=== PATIENT | female | born 1995 | race African-American/Black ===

== ENCOUNTER 2017-06-25 21:43 | Emergency (ER) | payer SELFPAY ==
[~2017-06-25] VITALS: Ht 167.6 cm; Wt 122.5 kg
[2017-06-25 22:50] VITALS: BP 177/93; PULSE 78; RESP 18; TEMP 97.7; O2SAT 100
--- NOTE | 2017-06-26 00:32 | PD ---
HPI Chief Complaint: Laceration/Skin Injury Time Seen by Provider: 00:23 Travel History International Travel<30 days: No Contact w/Intl Traveler<30days: No Traveled to known affect area: No History of Present Illness HPI 22-year-old female presents emergency department for evaluation of a laceration sustained to the left index finger. Patient cut the finger with a pizza cutter tonight at work. She states it was difficult to get it to stop bleeding. It has stopped bleeding at this time. Patient denies any significant pain at site. No alterations in sensation. No limitations in range of motion. Patient is up-to-date on her tetanus vaccination. She has no other symptoms to report. [facility] Past Medical History Medical History: Denies Significant Hx ?: Not LMP: 06/04/17 Social History Tobacco Use: No Allergies-Medications (Allergen,Severity, Reaction): Coded Allergies: No Known Drug Allergies (Verified Allergy, Unknown, 06/25/17) Review of Systems Except as stated in HPI: all other systems reviewed are Neg Physical Exam Narrative GENERAL: Well-nourished female patient, no acute distress. SKIN: Focused skin assessment warm/dry. Less than 1 cm superficial laceration to the lateral aspect of the left distal second digit. Bleeding is controlled. No erythema or edema. HEAD: Atraumatic. Normocephalic. EYES: Pupils equal and round. No scleral icterus. No injection or drainage. ENT: No nasal bleeding or discharge. Mucous membranes pink and moist. NECK: Trachea midline. No JVD. CARDIOVASCULAR: Regular rate and rhythm. No murmur appreciated. RESPIRATORY: No accessory muscle use. Clear to auscultation. Breath sounds equal bilaterally. MUSCULOSKELETAL: No obvious deformities. No clubbing. No cyanosis. No edema. Patient has full flexion-extension of the affected digit. Cap refill within normal limits. Distal pulses are palpable. NEUROLOGICAL: Awake and alert. No obvious cranial nerve deficits. Motor grossly within normal limits. Normal speech. PSYCHIATRIC: Appropriate mood and affect; insight and judgment normal. Data Data Last Documented VS Vital Signs Date Time Temp Pulse Resp B/P (MAP) Pulse Ox O2 Delivery O2 Flow Rate FiO2 06/25/17 22:50 97.7 78 18 177/93 (121) 100 Orders Orders Wound Care (06/26/17 00:30) Ed Discharge Order (06/26/17 00:30) MDM Medical Decision Making Medical Screen Exam Complete: Yes Emergency Medical Condition: Yes Medical Record Reviewed: Yes Differential Diagnosis Laceration superficial versus deep versus abrasion versus avulsion Narrative Course 22-year-old female presents emergency department for evaluation of laceration to her left index finger. This is a very superficial cut. Bleeding is controlled. There is no alteration sensation. Wound is cleansed, Polysporin and a Band-Aid applied. Patient is counseled on care. She is encouraged to follow-up with a primary care provider and return immediately with any acute worsening symptoms. Diagnosis Primary Impression: Finger laceration Qualified Codes: S61.211A - Laceration without foreign body of left index finger without damage to nail, initial encounter Referrals: Primary Care Physician Patient Instructions: Acute Wound Care (DC), General Instructions Additional Instructions: Keep the area clean and dry Do not submerge in dirty dish water until the area is healed Return immediately to the emergency department with any acute worsening symptoms Med/Other Pt SpecificInfo: No Change to Meds Disposition: 01 DISCHARGE HOME Condition: Stable Beatrice Franco Jun 26, 2017 00:32
== END 2017-06-26 00:52 | disposition home or self-care (01) ==
LOC: NEPD 21:43
DX: S61.211A Laceration without foreign body of left index finger without damage to nail, initial encounter (principal); W26.8XXA Contact with other sharp object(s), not elsewhere classified, initial encounter; Y99.0 Civilian activity done for income or pay
CPT/HCPCS: 99281